=== PATIENT | female | born 1995 | race Caucasian/White ===

== ENCOUNTER 2017-02-26 10:23 | Observation (INO) | payer OTHER, MEDICAID ==
[2017-02-26] MEDS ORDERED: PREN-96 PO (11:58)
== END 2017-02-26 11:40 | disposition home or self-care (01) | DRG 781 ==
LOC: LDRP 10:23
PROVIDERS: ADMIT Specialist; ATTEND Specialist
DX: O26.892 Other specified pregnancy related conditions, second trimester (principal); M79.603 Pain in arm, unspecified; R10.9 Unspecified abdominal pain; Z3A.20 20 weeks gestation of pregnancy
CPT/HCPCS: 59025; 81002; G0378

== ENCOUNTER 2023-11-24 21:18 | Emergency (ER) | payer MEDICAID, OTHER ==
[~2023-11-24] VITALS: Ht 160 cm; Wt 79.0 kg
[~2023-11-24 21:18] MED LIST: PREN-96 PO
[2023-11-24 22:00] VITALS: PULSE 61; RESP 17
[2023-11-24] MEDS ORDERED: HYDR-4902 PO (23:43)
[2023-11-25] MEDS: HYDROcodone-ACET 5/325MG TAB PO ONE (00:22)
[2023-11-25 00:28] VITALS: BP 105/78; TEMP 98; O2SAT 98
[2023-11-25] MEDS ORDERED: HYDR-4902 PO ×2 (00:57→15:20)
== END 2023-11-25 01:29 | disposition home or self-care (01) ==
LOC: ER 21:18
DX: S93.492A Sprain of other ligament of left ankle, initial encounter (principal); Z98.890 Other specified postprocedural states; Z79.899 Other long term (current) drug therapy; X58.XXXA Exposure to other specified factors, initial encounter; Y93.44 Activity, trampolining; Y92.89 Other specified places as the place of occurrence of the external cause; Y99.8 Other external cause status
CPT/HCPCS: 29125; 29515; 73590; 73610